=== PATIENT | male | born 1990 | race Caucasian/White ===

== ENCOUNTER 2016-11-01 16:56 | Emergency (ER) | payer OTHER, BC ==
[2016-11-01 17:05] VITALS: TEMP 97.9
[2016-11-01] MEDS ORDERED: TDAP ADULT 0.5 ML INJ (BOOSTRIX) IM ONE (17:57)
--- NOTE | 2016-11-01 17:57 | EDPHY ---
H & P Stated Complaint: Laceration to left middle finger. Time Seen by Provider: 11/01/16 17:56 HPI/ROS: HPI: This is a 26-year-old male who presents with Chief Complaint: Left middle finger injury Location: Left middle finger Quality: Injury Duration: 1-3 hours prior to arrival Signs and Symptoms: + mild bleeding, no radiation, no numbness, no weakness, no tingling, no decreased range of motion Timing: Sudden Severity: Moderate Context: Patient was at work when he caught his left middle finger in between the dump truck and the gate. The gait close down on his finger, crushing it. He applied ice and direct pressure. Unsure of last tetanus shot. Right hand dominant. He is able to move his finger. Modifying Factors: Direct pressure Comment: ROS: Constitutional: No fever, no chills, no weight loss Eyes: No blurred vision Respiratory: No shortness of breath, no cough Cardiovascular: No chest pain Gastrointestinal: No nausea, no vomiting no diarrhea Genitourinary: No dysuria Extremities: No myalgias Neurologic: No weakness, no numbness Skin: No rashes Hematologic: No bruising, no bleeding MEDICAL/SURGICAL/SOCIAL HISTORY: Generally healthy. Source: Patient Exam Limitations: No limitations - Personal History Current Tetanus Diphtheria and Acellular Pertussis (TDAP): No - Medical/Surgical History Hx Asthma: No Hx Chronic Respiratory Disease: No Hx Diabetes: No Hx Cardiac Disease: No Hx Renal Disease: No Hx Cirrhosis: No Hx Alcoholism: No Hx HIV/AIDS: No Hx Splenectomy or Spleen Trauma: No Other PMH: Denies - Social History Smoking Status: Never smoked - Physical Exam Exam: CONSTITUTIONAL: Young adult white male, awake and alert, no obvious distress HEENT: Atraumatic and normocephalic, PERRL, EOMI. Tympanic membranes clear. Oropharynx clear, no exudate and moist pink mucosa. Airway patent. No lymphadenopathy. No meningismus. Cardiovascular: Normal S1/S2, regular rate, regular rhythm, without murmur rub or gallop. PULMONARY/CHEST: Symmetrical and nontender. Clear to auscultation bilaterally Good air movement. No accessory muscle usage. ABDOMEN: Soft, nondistended, nontender, no rebound, no guarding, no peritoneal signs, no masses or organomegaly. No CVAT. EXTREMITIES: 2/2 pulses, left hand 3rd digit shows crush injury over the PIP joint on both dorsal and palmar surface; flexion and extension is intact at the PIP the DIP and metacarpal joints. Light touch sensation intact. no clubbing, no cyanosis or edema. NEUROLOGICAL: no focal neuro deficits. GCS 15. SKIN: Warm and dry, no erythema. no rash. Good capillary refill. Constitutional: Initial Vital Signs Temperature (C) 36.6 C 11/01/16 17:03 Heart Rate 81 11/01/16 17:03 Respiratory Rate 16 11/01/16 17:03 Blood Pressure 136/89 H 11/01/16 17:03 O2 Sat (%) 95 11/01/16 17:03 O2 Delivery Mode Room Air Allergies/Adverse Reactions: No Known Allergies Allergy (Unverified 11/01/16 17:05) Home Medications: Medication Instructions Recorded Cephalexin [Keflex (*)] 500 mg PO TID #21 cap 11/01/16 oxyCODONE/APAP 5/325 [Percocet 1 - 2 tab PO Q4H PRN #20 tab 11/01/16 5/325 (*)] Medical Decision Making - Diagnostics Imaging Results: Imaging Impressions Hand X-Ray 11/01/16 18:05 Impression: Acute nondisplaced intra-articular fracture distal phalanx third finger. Procedures: Procedure: Laceration repair. Verbal consent was obtained from the patient. The complex laceration crush injury on the left middle finger DIP joint was anesthetized in the usual fashion 5 mL 1% lidocaine without epinephrine. The wound was irrigated, draped and explored to its base with a gloved finger. There were no deep structures involved. No tendon injury was identified. The wound was repaired with #3, 6 0 Prolene; loosely in on a simple interrupted pattern. The procedure was performed by myself. Procedure: Splint placement. A finger splint was applied on the left middle finger. After application of the splint I returned and re-examined the patient. The splint was adequately immobilizing the joint and distal to the splint the patient's circulation and sensation was intact. ED Course/Re-evaluation: X-ray, IM and IV medication, wound repair ordered Tetanus booster given Crush open injury; IV Ancef 2 grams given X-ray reviewed by myself shows nondisplaced intra-articular fracture of the distal phalanx of the 3rd finger No signs of neurovascular compromise/tenting of skin/compartment syndrome/ extremities and joints examined above and below area of concern and are neurovascularly intact. Spoke with Dr. Snyder who recommends loose closure; p.o. Keflex; IV Ancef; splint ; call her office tomorrow for close follow-up. #3 Absorbable sutures used to close dorsal portion of laceration. Xeroform; gauze and finger splint placed Differential Diagnosis: Differential diagnosis includes but is not limited to fracture, dislocation, tendon injury, nerve injury, crush injury. - Data Points Medications Given: Discontinued Medications Diphtheria/Tetanus/Acell Pertussis (Boostrix) 0.5 ml IM .ONCE ONE Stop: 11/01/16 17:58 Last Admin: 11/01/16 18:17 Dose: 0.5 ml Cefazolin Sodium/Dextrose (Ancef 1 Gm (Premix)) 50 mls @ 200 mls/hr IV EDNOW ONE PRN Reason: Protocol Stop: 11/01/16 19:01 Last Admin: 11/01/16 19:10 Dose: 50 mls Cefazolin Sodium/Dextrose (Ancef 1 Gm (Premix)) 50 mls @ 200 mls/hr IV EDNOW ONE PRN Reason: Protocol Stop: 11/01/16 19:45 Last Admin: 11/01/16 19:40 Dose: 50 mls Tetracaine/Epinephrine/Lidocaine (Let Gel Topical) 1 ea TP EDNOW ONE Stop: 11/01/16 18:06 Last Admin: 11/01/16 18:24 Dose: Not Given Departure - Departure Disposition: Home, Routine, Self-Care Clinical Impression: Crushing injury of finger of left hand Finger fracture, left Qualifiers: Encounter type: initial encounter Finger: middle finger Fracture type: open Phalanx: distal Fracture alignment: nondisplaced Qualified Code(s): S62.663B - Nondisplaced fracture of distal phalanx of left middle finger, initial encounter for open fracture Laceration of left middle finger Qualifiers: Encounter type: initial encounter Damage to nail status: without damage Foreign body presence: without foreign body Qualified Code(s): S61.213A - Laceration without foreign body of left middle finger without damage to nail, initial encounter Condition: Good Instructions: Finger Laceration (ED), Crush Injury (ED), Finger Fracture (ED) Additional Instructions: Keep the splint and dressing in place until seen by Hand surgery. Keep the splint dry. Take ibuprofen 600-800 mg every 6-8 hours with food as needed for pain and inflammation. Take Percocet as needed for severe breakthrough pain. Apply ice for 30 minutes at a time; 2-3 times per day for the next 1-2 days. Call Hand surgery tomorrow for an appointment in the next few days. Take all antibiotics as prescribed. The x-rays obtained in the emergency department today demonstrate no evidence of an obvious fracture. Sometimes fractures are not obvious on the initial set of x-rays performed in the ED. For this reason, you should have repeat x-rays performed in 7-10 days if you are having any pain exclude the possibility of an occult fracture. Referrals: Kathia Snyder MD [Medical Doctor] - 2-3 days, call for appt. Prescriptions: Cephalexin [Keflex (*)] 500 mg PO TID #21 cap oxyCODONE/APAP 5/325 [Percocet 5/325 (*)] 1 - 2 tab PO Q4H PRN #20 tab PRN Reason: Pain, Severe
[2016-11-01] MEDS ORDERED: LET GEL TOPICAL 1 EA SYR TP ONE (18:05)
[2016-11-01 20:19] VITALS: BP 132/70; PULSE 70; RESP 14; O2SAT 97
== END 2016-11-01 20:18 | disposition home or self-care (01) ==
PROC: 0HQGXZZ Repair Left Hand Skin, External Approach (ICD-10-PCS; principal; 2016-11-01)
DX: S67.193A Crushing injury of left middle finger, initial encounter (principal); S62.663B Nondisplaced fracture of distal phalanx of left middle finger, initial encounter for open fracture; S61.213A Laceration without foreign body of left middle finger without damage to nail, initial encounter; W23.1XXA Caught, crushed, jammed, or pinched between stationary objects, initial encounter; Y92.69 Other specified industrial and construction area as the place of occurrence of the external cause; Y99.0 Civilian activity done for income or pay; Y93.89 Activity, other specified; Z23 Encounter for immunization
CPT/HCPCS: 96365; J0690; L3925